=== PATIENT | female | born 1995 | race African-American/Black ===

== ENCOUNTER 2018-10-31 15:50 | Inpatient (IN) ==
[2018-10-31] MEDS ORDERED: MEPERIDINE 50 MG/1 ML VIAL IV PRN (16:01)
[2018-10-31] MEDS ORDERED: ONDANSETRON 4 MG/2 ML VIAL IV PRN (16:01)
[2018-10-31] MEDS ORDERED: BUTORPHANOL 2 MG/ML VIAL IV PRN (16:01)
[2018-10-31 16:24] LABS: Basophils # 0.1 10*3/uL (0.0-0.2); Basophils % 0.8 % (0.0-0.8); Eosinophils # 0.1 10*3/uL (0.0-0.87); Hematocrit 27.4 VOL% (35.7-47.0); Hemoglobin 8.2 GM/DL (12.0-16.0); Immature Granulocytes Absolute 0.09 #; Lymphocytes # 1.8 10*3/uL (1.4-4.0); Lymphocytes % 20.2 % (21.3-54.2); Mean Corpuscular HGB Conc 29.9 GM/DL (32-36); Mean Corpuscular Hemoglobin 20 PG (27-34); Mean Corpuscular Volume 67.8 FL (87-102); Mean Platelet Volume 9.8 FL (9.6-12.0); Monocytes # 0.6 10*3/uL (0.11-0.8); Monocytes % 7.2 % (1.7-12.7); Neutrophils # 6.2 10*3/uL (1.4-7.4); Neutrophils % 69.8 % (38.7-73.9); Platelet Count 257 T/CUMM (130-400); Red Blood Count 4.04 MC/CUMM (3.8-5.5); Red Cell Distribution Width 18.1 % (9.3-17.3); White Blood Count 8.8 T/CUMM (4-12)
[2018-10-31] MEDS: LACTATED RINGERS 1,000 ML IV SCH ×2 (16:29→19:42)
[2018-10-31] MEDS ORDERED: OXYTOCIN/LR 20 UNIT/1,000 ML BAG IV SCH (16:30)
[2018-10-31] MEDS ORDERED: diphenhydrAMINE 50 MG/1 ML VIAL IV PRN ×2 (18:32)
[2018-10-31] MEDS ORDERED: LACTATED RINGERS 500 ML IV ONE (18:32)
[2018-10-31] MEDS ORDERED: LACTATED RINGERS 250 ML IV PRN (18:32)
[2018-10-31] MEDS ORDERED: NALOXONE 0.4 MG/ML VIAL IV PRN (18:32)
[2018-10-31] MEDS ORDERED: hydrOXYzine HCL 25 MG/1 ML VIAL IM PRN (18:32)
[2018-10-31] MEDS ORDERED: PROMETHAZINE 25 MG/1 ML VIAL IM ONE (18:32)
[2018-10-31] MEDS ORDERED: ONDANSETRON 4 MG/2 ML VIAL IV ONE (18:32)
[2018-10-31] MEDS ORDERED: LACTATED RINGERS 1,000 ML IV ONE (18:32)
[2018-10-31] MEDS ORDERED: ePHEDrine 50 MG/ML AMP IV PRN (18:32)
[2018-10-31] MEDS ORDERED: fentaNYL 2 MCG/ROPIV 0.2% EPID 100 ML EPIDURAL SCH (19:00)
[2018-10-31] MEDS ORDERED: LACTATED RINGERS 1,000 ML IV SCH ×2 (19:00)
[2018-10-31] MEDS ORDERED: FAMOTIDINE 20 MG/2 ML VIAL IV ONE (19:16)
[2018-10-31] MEDS ORDERED: miSOPROStol 200 MCG TABLET ONE (21:59)
[2018-10-31] MEDS ORDERED: METHYLERGONOVINE 0.2 MG/1 ML AMP ONE (22:00)
[2018-10-31] MEDS ORDERED: CARBOPROST TROMETHAMINE 250 MCG/ML AMP IM ONE (22:00)
[2018-11-01] MEDS ORDERED: OXYTOCIN/LR 20 UNIT/1,000 ML BAG IV ONE (00:56)
[2018-11-01] MEDS ORDERED: NON-FORMULARY MEDICATION (Albuterol Inhaler 2 PUFF) INH PRN (01:12)
[2018-11-01] MEDS ORDERED: ACETAMINOPHEN 325 MG TABLET PO PRN (01:12)
[2018-11-01] MEDS ORDERED: MAGNESIUM HYDROXIDE SUSP 30 ML UDCUP PO PRN (01:12)
[2018-11-01] MEDS ORDERED: ONDANSETRON 4 MG/2 ML VIAL IV PRN (01:12)
[2018-11-01] MEDS ORDERED: BISACODYL 10 MG SUPP RECTAL PRN (01:12)
[2018-11-01] MEDS: IBUPROFEN 800 MG TABLET PO PRN ×3 (01:25→16:53)
[2018-11-01 06:34] LABS: Basophils # 0.1 10*3/uL (0.0-0.2); Basophils % 0.4 % (0.0-0.8); Eosinophils # 0.1 10*3/uL (0.0-0.87); Eosinophils % 0.6 % (0.00-10.9); Hematocrit 23.4 VOL% (35.7-47.0); Immature Granulocytes % 0.8 %; Immature Granulocytes Absolute 0.11 #; Lymphocytes # 2.1 10*3/uL (1.4-4.0); Lymphocytes % 14.5 % (21.3-54.2); Mean Corpuscular HGB Conc 29.9 GM/DL (32-36); Mean Corpuscular Hemoglobin 20 PG (27-34); Mean Corpuscular Volume 67.8 FL (87-102); Mean Platelet Volume 10.1 FL (9.6-12.0); Monocytes % 7.4 % (1.7-12.7); Neutrophils # 10.8 10*3/uL (1.4-7.4); Neutrophils % 76.3 % (38.7-73.9); Platelet Count 220 T/CUMM (130-400); Red Blood Count 3.45 MC/CUMM (3.8-5.5); White Blood Count 14.1 T/CUMM (4-12)
[2018-11-01 06:51] LABS: Hypochromasia 1+; Platelet Estimate Adequate
[2018-11-01 06:53] LABS: Ovalocytes Slight
[2018-11-01] MEDS: DOCUSATE SODIUM 100 MG CAPSULE PO SCH ×2 (08:47→21:16)
[2018-11-01] MEDS ORDERED: DOCOSAHEXANOIC ACID 200 MG PO SCH (09:00)
[2018-11-01] MEDS: IRON (CARBONYL)/VIT C/B12/FA TABLET PO SCH (15:09)
[2018-11-01] MEDS ORDERED: INFLUENZA VIRUS VACCINE 0.5 ML SYRINGE IM ONE (16:24)
[2018-11-02 07:40] VITALS: BP 100/66
[2018-11-02] MEDS: DOCUSATE SODIUM 100 MG CAPSULE PO SCH (09:11)
[2018-11-02] MEDS: IRON (CARBONYL)/VIT C/B12/FA TABLET PO SCH (09:11)
[2018-11-02] MEDS ORDERED: INFLUENZA VIRUS VACCINE 0.5 ML SYRINGE IM ONE (09:41)
[2018-11-02] MEDS ORDERED: DIPH/TET/ACEL PERT BOOSTER VACCINE 0.5 ML VIAL IM ONE (09:41)
== END 2018-11-02 12:40 | disposition home or self-care (01) | DRG 560 ==
LOC: N.LDOUT 15:50 → N.LD 15:52 → N.OB 11-01 01:00
PROVIDERS: ADMIT Obstetrics & Gynecology; ATTEND Obstetrics & Gynecology

== ENCOUNTER 2020-06-16 23:20 | Inpatient (IN) ==
[2020-06-16] MEDS ORDERED: ONDANSETRON 4 MG/2 ML VIAL IV PRN ×2 (23:40→23:41)
[2020-06-16] MEDS ORDERED: ACETAMINOPHEN 325 MG TABLET PO PRN (23:41)
[2020-06-16] MEDS ORDERED: MEPERIDINE 50 MG/1 ML VIAL IV PRN (23:41)
[2020-06-16] MEDS ORDERED: BUTORPHANOL 2 MG/ML VIAL IV PRN (23:41)
[2020-06-16] MEDS ORDERED: OXYTOCIN/LR 20 UNIT/1,000 ML BAG IV ONE (23:44)
[2020-06-16] MEDS ORDERED: LACTATED RINGERS 1,000 ML IV SCH ×2 (23:45)
[2020-06-16] MEDS ORDERED: AMPICILLIN INJ 2,000 MG in SODIUM CHLORIDE 0.9% 100 ML IV ONE (23:49)
[2020-06-16] MEDS ORDERED: SODIUM CHLORIDE 0.9% 100 ML IV ONE (23:50)
[2020-06-16] MEDS ORDERED: AMPICILLIN 2,000 MG VIAL ONE (23:50)
[2020-06-17] MEDS: OXYTOCIN/LR 20 UNIT/1,000 ML BAG IV PRN ×2 (00:09→04:31)
[2020-06-17 00:21] LABS: Basophils # 0.1 10*3/uL (0.0-0.2); Basophils % 0.5 % (0.0-0.8); Eosinophils # 0.1 10*3/uL (0.0-0.87); Eosinophils % 0.9 % (0.00-10.9); Hematocrit 29.4 VOL% (35.7-47.0); Immature Granulocytes % 0.8 %; Immature Granulocytes Absolute 0.08 #; Lymphocytes # 2.9 10*3/uL (1.4-4.0); Lymphocytes % 27.7 % (21.3-54.2); Mean Corpuscular HGB Conc 28.2 GM/DL (32-36); Mean Corpuscular Volume 74.2 FL (87-102); Mean Platelet Volume 10.1 FL (9.6-12.0); Monocytes % 7.1 % (1.7-12.7); NRBC # 0.02 10*3/uL; Platelet Count 226 T/CUMM (130-400); Red Blood Count 3.96 MC/CUMM (3.8-5.5); Red Cell Distribution Width 17.2 % (9.3-17.3); White Blood Count 10.4 T/CUMM (4-12)
[2020-06-17 00:25] LABS: Albumin 3.2 G/DL (3.4-5.0); Bilirubin,Total 0.4 MG/DL (0.2-1.0); Calcium 8.6 MG/DL (8.5-10.1); Hemoglobin 8.3 GM/DL (12.0-16.0); Osmolality,Calculated 266.1 MOS/KG (273-304); Total Protein 8.1 G/DL (6.4-8.3)
[2020-06-17 00:29] LABS: Cord Venous Blood PCO2 36.1 MMHG; Cord Venous Blood PO2 35.8 MMHG
[2020-06-17] MEDS ORDERED: ACETAMINOPHEN 500 MG TABLET PO PRN (00:51)
[2020-06-17] MEDS ORDERED: BISACODYL 10 MG SUPP RECTAL PRN ×2 (00:51→07:50)
[2020-06-17] MEDS ORDERED: MAGNESIUM HYDROXIDE SUSP 30 ML UDCUP PO PRN (00:51)
[2020-06-17] MEDS ORDERED: ONDANSETRON 4 MG/2 ML VIAL IV PRN ×2 (00:51→07:50)
[2020-06-17] MEDS ORDERED: LACTATED RINGERS 1,000 ML IV SCH (01:00)
[2020-06-17 01:02] LABS: Hypochromasia Slight; Microcytosis 1+; Platelet Estimate Normal
[2020-06-17 01:31] LABS: Apearance,Urine Slightly Hazy (Clear); Bilirubin,Urine Negative (Negative); Blood, Urine Large mg/dL (Negative); Glucose,Urine (UA) Negative (Negative); Ketones,Urine 20 mg/dL (Negative); Mucus,Urine Occasional /LPF (Occasional); Nitrite,Urine Negative (Negative); Protein,Urine 100 MG/DL; RBC,Urine 3574 /HPF (0-4); Urine Color Red (Yellow); Urine Specific Gravity 1.019 (1.001-1.035); Urine Urobilinogen < 2.0 EU/DL (0.2-1.0)
[2020-06-17 01:42] LABS: Barbiturates Screen,Urine Negative (Negative); Benzodiazepines Screen,Urine Positive (Negative); Cannabinoid Screen,Urine Positive (Negative); Opiate Screen,Urine Negative (Negative); Phencyclidine Screen,Urine Negative (Negative)
[2020-06-17] MEDS ORDERED: OXYTOCIN/LR 20 UNIT/1,000 ML BAG IV ONE ×2 (04:24→07:50)
[2020-06-17 04:55] LABS: Basophils # 0.1 10*3/uL (0.0-0.2); Basophils % 0.5 % (0.0-0.8); Eosinophils # 0.1 10*3/uL (0.0-0.87); Eosinophils % 0.4 % (0.00-10.9); Hematocrit 25.6 VOL% (35.7-47.0); Hemoglobin 7.4 GM/DL (12.0-16.0); Immature Granulocytes % 0.6 %; Immature Granulocytes Absolute 0.08 #; Lymphocytes # 2.1 10*3/uL (1.4-4.0); Lymphocytes % 16.3 % (21.3-54.2); Mean Corpuscular HGB Conc 28.9 GM/DL (32-36); Mean Corpuscular Volume 71.7 FL (87-102); Mean Platelet Volume 10.1 FL (9.6-12.0); Monocytes % 6.1 % (1.7-12.7); Neutrophils % 76.1 % (38.7-73.9); Platelet Count 198 T/CUMM (130-400); Red Blood Count 3.57 MC/CUMM (3.8-5.5); White Blood Count 12.7 T/CUMM (4-12)
[2020-06-17 05:18] LABS: Hypochromasia 1+; Microcytosis 1+; Platelet Estimate Adequate
[2020-06-17 05:44] LABS: Hepatitis B Surface Ag Quant < 0.10 Index; Hepatitis B Surface Ag Result Negative (Negative)
[2020-06-17 06:06] LABS: HIV Antigen/Antibody Result Nonreactive (Nonreactive)
[2020-06-17] MEDS ORDERED: oxyCODONE/ACETAMINOPHEN 5-325 MG TABLET PO PRN ×2 (07:50)
[2020-06-17] MEDS ORDERED: LANOLIN 50% CREAM 0.3 OZ TUBE TOP PRN (07:50)
[2020-06-17] MEDS ORDERED: RHO(D) IMMUNE GLOBULIN 300 MCG SYRINGE IM ONE (07:50)
[2020-06-17] MEDS ORDERED: BENZOCAINE 20%/MENTHOL 0.5% SPRAY 56 GM CAN TOP PRN (07:50)
[2020-06-17] MEDS ORDERED: ACETAMINOPHEN 325 MG TABLET PO PRN (07:50)
[2020-06-17] MEDS ORDERED: WITCH HAZEL PADS 100/JAR TOP PRN (07:50)
[2020-06-17] MEDS ORDERED: HYDROCORTISONE 2.5% RECTAL CREAM 30 GM TUBE TOP PRN (07:50)
[2020-06-17] MEDS ORDERED: MEASLES/MUMPS/RUBELLA VACCINE 0.5 ML VIAL SUBCUT ONE (07:50)
[2020-06-17] MEDS ORDERED: DIPH/TET/ACEL PERT BOOSTER VACCINE 0.5 ML VIAL IM ONE (07:50)
[2020-06-17] MEDS: IBUPROFEN 800 MG TABLET PO PRN (07:59)
[2020-06-17] MEDS ORDERED: DOCUSATE SODIUM 100 MG CAPSULE PO SCH (09:00)
[2020-06-17] MEDS: DOCUSATE SODIUM 100 MG CAPSULE PO SCH ×2 (10:10→21:06)
[2020-06-17] MEDS: IRON (CARBONYL)/VIT C/B12/FA TABLET PO SCH (11:30)
[2020-06-18] MEDS: IBUPROFEN 800 MG TABLET PO PRN ×2 (03:41→19:39)
[2020-06-18 04:41] LABS: Basophils # 0.1 10*3/uL (0.0-0.2); Basophils % 0.8 % (0.0-0.8); Eosinophils # 0.1 10*3/uL (0.0-0.87); Eosinophils % 1.2 % (0.00-10.9); Hematocrit 24.4 VOL% (35.7-47.0); Hemoglobin 7.3 GM/DL (12.0-16.0); Immature Granulocytes % 0.8 %; Immature Granulocytes Absolute 0.08 #; Lymphocytes # 3.4 10*3/uL (1.4-4.0); Lymphocytes % 34.1 % (21.3-54.2); Mean Corpuscular HGB Conc 29.9 GM/DL (32-36); Mean Corpuscular Volume 70.3 FL (87-102); Mean Platelet Volume 9.7 FL (9.6-12.0); Monocytes % 6.1 % (1.7-12.7); Platelet Count 206 T/CUMM (130-400); Red Blood Count 3.47 MC/CUMM (3.8-5.5); Red Cell Distribution Width 17.2 % (9.3-17.3); White Blood Count 9.9 T/CUMM (4-12)
[2020-06-18 05:04] LABS: Atypical Lymphocytes Few; Eosinophils 1 % (0-10); Lymphocytes 32 % (20-55); Segmented Neutrophils 60 % (50-85); Total Cells Counted 100
[2020-06-18 05:05] LABS: Hypochromasia 1+; Microcytosis 1+; Ovalocytes Few
[2020-06-18 05:06] LABS: Platelet Estimate Normal; Polychromasia Slight
[2020-06-18] MEDS: IRON (CARBONYL)/VIT C/B12/FA TABLET PO SCH (08:59)
[2020-06-18] MEDS: DOCUSATE SODIUM 100 MG CAPSULE PO SCH ×3 (08:59→22:23)
[2020-06-19 08:54] VITALS: BP 116/77
[2020-06-19] MEDS: IRON (CARBONYL)/VIT C/B12/FA TABLET PO SCH (11:29)
[2020-06-19] MEDS: DOCUSATE SODIUM 100 MG CAPSULE PO SCH (11:29)
== END 2020-06-19 14:00 | disposition home or self-care (01) | DRG 560 ==
LOC: N.LDOUT 23:20 → N.LD 23:22 → N.OB 06-17 09:55
PROVIDERS: ADMIT Obstetrics & Gynecology; ATTEND Obstetrics & Gynecology

== ENCOUNTER 2021-10-07 10:28 | Inpatient (IN) ==
[2021-10-07] MEDS ORDERED: LACTATED RINGERS 500 ML IV PRN (11:15)
[2021-10-07] MEDS ORDERED: ONDANSETRON 4 MG/2 ML VIAL IV PRN ×2 (11:15→17:05)
[2021-10-07] MEDS ORDERED: LACTATED RINGERS 250 ML IV ONE (11:15)
[2021-10-07] MEDS ORDERED: LACTATED RINGERS 1,000 ML IV PRN (11:15)
[2021-10-07] MEDS ORDERED: INFLUENZA VIRUS VACCINE 0.5 ML SYRINGE IM ONE (11:22)
[2021-10-07] MEDS ORDERED: AMPICILLIN INJ 2,000 MG in SODIUM CHLORIDE 0.9% 100 ML IV ONE (11:28)
[2021-10-07 11:55] LABS: Basophils # 0.1 10*3/uL (0.0-0.2); Basophils % 0.8 % (0.0-0.8); Eosinophils # 0.1 10*3/uL (0.0-0.87); Eosinophils % 1.4 % (0.00-10.9); Hematocrit 32.4 VOL% (35.7-47.0); Hemoglobin 9.8 GM/DL (12.0-16.0); Immature Granulocytes % 0.5 %; Immature Granulocytes Absolute 0.03 #; Lymphocytes # 2.2 10*3/uL (1.4-4.0); Lymphocytes % 35.4 % (21.3-54.2); Mean Corpuscular HGB Conc 30.2 GM/DL (32-36); Mean Corpuscular Volume 80.2 FL (87-102); Mean Platelet Volume 10.7 FL (9.6-12.0); Monocytes % 7.2 % (1.7-12.7); Neutrophils % 54.7 % (38.7-73.9); Platelet Count 233 T/CUMM (130-400); Red Blood Count 4.04 MC/CUMM (3.8-5.5); Red Cell Distribution Width 15.3 % (9.3-17.3); White Blood Count 6.3 T/CUMM (4-12)
[2021-10-07 12:04] LABS: Barbiturates Screen,Urine Negative (Negative); Benzodiazepines Screen,Urine Positive (Negative); Cannabinoid Screen,Urine Positive (Negative); Opiate Screen,Urine Negative (Negative); Phencyclidine Screen,Urine Negative (Negative)
[2021-10-07 12:27] LABS: Alanine Aminotransferase 17 U/L (13-56); Albumin 2.5 G/DL (3.4-5.0); Alkaline Phosphatase 149 U/L (45-117); Aspartate Amino Transferase 26 U/L (0-37); Bilirubin,Total < 0.39 MG/DL (0.20-1.00); Blood Urea Nitrogen 7 MG/DL (7-18); Calcium 8.7 MG/DL (8.5-10.1); Carbon Dioxide 22 MMOL/L (21-32); Estimated Glom Filtration Rate 141 ML/MIN; Glucose 75 MG/DL (74-106); Osmolality,Calculated 269.8 MOS/KG (273-304); Potassium 3.2 MMOL/L (3.5-5.1); Sodium 137 MMOL/L (136-145); Total Protein 6.9 G/DL (6.4-8.2)
[2021-10-07] MEDS ORDERED: BUTORPHANOL 2 MG/ML VIAL IV PRN (12:58)
[2021-10-07] MEDS ORDERED: FAMOTIDINE 20 MG/2 ML VIAL IV ONE (13:40)
[2021-10-07] MEDS ORDERED: LACTATED RINGERS 1,000 ML IV ONE (13:40)
[2021-10-07] MEDS ORDERED: CITRIC ACID/SODIUM CITRATE 30 ML UDCUP PO ONE (13:40)
[2021-10-07] MEDS ORDERED: NALOXONE 0.4 MG/ML VIAL IV PRN (13:40)
[2021-10-07] MEDS ORDERED: ePHEDrine 50 MG/ML VIAL IV PRN (13:40)
[2021-10-07] MEDS ORDERED: diphenhydrAMINE 50 MG/1 ML VIAL IV PRN ×2 (13:40)
[2021-10-07] MEDS ORDERED: fentaNYL 2 MCG/ROPIV 0.2% EPID 100 ML EPIDURAL SCH (14:00)
[2021-10-07] MEDS ORDERED: LACTATED RINGERS 1,000 ML IV SCH ×2 (14:00→17:30)
[2021-10-07] MEDS ORDERED: OXYTOCIN/LR 20 UNIT/1,000 ML BAG IV ONE (14:20)
[2021-10-07] MEDS ORDERED: TRANEXAMIC ACID 1,000 MG/10 ML VIAL ONE (14:20)
[2021-10-07] MEDS ORDERED: CARBOPROST TROMETHAMINE 250 MCG/ML AMP IM ONE (14:20)
[2021-10-07] MEDS ORDERED: miSOPROStoL 200 MCG TABLET ONE (14:20)
[2021-10-07] MEDS ORDERED: SODIUM CHLORIDE 0.9% 0 ML IV ONE (14:20)
[2021-10-07] MEDS ORDERED: METHYLERGONOVINE 0.2 MG/1 ML AMP ONE (14:20)
[2021-10-07] MEDS: OXYTOCIN/LR 20 UNIT/1,000 ML BAG IV SCH ×2 (14:30→18:32)
[2021-10-07 15:30] LABS: Cord Venous Blood HCO3 20.8 MMOL/L; Cord Venous Blood PCO2 41.2 MMHG; Cord Venous Blood PO2 38.8
[2021-10-07] MEDS ORDERED: AMPICILLIN INJ 1,000 MG in SODIUM CHLORIDE 0.9% 100 ML IV SCH (16:00)
[2021-10-07] MEDS: POTASSIUM CHLORIDE 20 MEQ TABLET PO PRN ×3 (16:54→20:49)
[2021-10-07] MEDS: IBUPROFEN 800 MG TABLET PO PRN (17:04)
[2021-10-07] MEDS ORDERED: MAGNESIUM HYDROXIDE SUSP 30 ML UDCUP PO PRN (17:05)
[2021-10-07] MEDS ORDERED: ACETAMINOPHEN 500 MG TABLET PO PRN (17:05)
[2021-10-07] MEDS ORDERED: IBUPROFEN 800 MG TABLET PO PRN (17:05)
[2021-10-07] MEDS ORDERED: BISACODYL 10 MG SUPP RECTAL PRN (17:05)
[2021-10-07] MEDS: DOCUSATE SODIUM 100 MG CAPSULE PO SCH (20:48)
[2021-10-08] MEDS: IBUPROFEN 800 MG TABLET PO PRN ×3 (02:30→20:18)
[2021-10-08 05:27] LABS: Basophils % 0.4 % (0.0-0.8); Eosinophils # 0.1 10*3/uL (0.0-0.87); Hematocrit 30.9 VOL% (35.7-47.0); Hemoglobin 9.4 GM/DL (12.0-16.0); Immature Granulocytes % 0.6 %; Immature Granulocytes Absolute 0.06 #; Lymphocytes # 1.9 10*3/uL (1.4-4.0); Lymphocytes % 18.7 % (21.3-54.2); Mean Corpuscular HGB Conc 30.4 GM/DL (32-36); Mean Corpuscular Volume 79.6 FL (87-102); Mean Platelet Volume 10.9 FL (9.6-12.0); Monocytes % 6.9 % (1.7-12.7); Neutrophils % 72.4 % (38.7-73.9); Platelet Count 217 T/CUMM (130-400); Red Blood Count 3.88 MC/CUMM (3.8-5.5); Red Cell Distribution Width 15.3 % (9.3-17.3); White Blood Count 10.1 T/CUMM (4-12)
[2021-10-08] MEDS: DOCUSATE SODIUM 100 MG CAPSULE PO SCH ×2 (10:07→20:17)
[2021-10-09] MEDS: IBUPROFEN 800 MG TABLET PO PRN (03:59)
[2021-10-09] MEDS: DOCUSATE SODIUM 100 MG CAPSULE PO SCH (09:02)
[2021-10-09 09:54] VITALS: BP 118/85
== END 2021-10-09 13:35 | disposition home or self-care (01) | DRG 560 ==
LOC: N.LD 10:28 → N.OB 16:32
PROVIDERS: ADMIT Obstetrics & Gynecology; ATTEND Obstetrics & Gynecology